=== PATIENT | female | born 1990 | race American Indian/Alaskan Native ===

== ENCOUNTER 2017-02-06 13:29 | Emergency (ER) | payer BC ==
[2017-02-06 13:55] VITALS: BP 130/74
--- NOTE | 2017-02-06 15:03 | Emergency Department Report ---
ED Female HPI - General Chief complaint: Abdominal Pain Stated complaint: DYSMENORRHEA Time Seen by Provider: 02/06/17 14:58 Source: patient Mode of arrival: Ambulatory Limitations: No Limitations - History of Present Illness Initial comments: 36-year-old female past medical history presents with complaint of dysmenorrhea times one year. Symptoms are progressively worsening. Positive suprapubic pelvic cramps rated 9/10 in intensity, intermittent, no aggravating or alleviating factors. Patient taking [id number] medication without improvement. Patient used to approximate one pad per day with clots, cycles last 5 days, menstrual cycles occur regularly and monthly. Patient being followed by Dr. Nicole - Related Data Home Medications Medication Instructions Recorded Confirmed Last Taken Noreth-Ethinyl Estradiol/Iron 1 each PO DAILY 06/26/15 06/26/15 Unknown [[place] Fe Tablet Chewable] Previous Rx's Medication Instructions Recorded Last Taken Type LORazepam [Ativan] 1 mg PO TID PRN #10 tablet 06/26/15 Unknown Rx Meclizine [Antivert] 25 mg PO TID PRN #20 tablet 06/26/15 Unknown Rx Ibuprofen [Motrin] 800 mg PO Q8HR PRN #30 tablet 02/06/17 Unknown Rx traMADol [Ultram 50 MG tab] 50 mg PO Q6HR PRN #20 tablet 02/06/17 Unknown Rx Allergies Allergy/AdvReac Type Severity Reaction Status Date / Time No Known Allergies Allergy Unverified 01/23/14 10:09 ED Review of Systems ROS: Stated complaint: DYSMENORRHEA Other details as noted in HPI Comment: All other systems reviewed and negative Other: Constitutional: No fevers chills Eyes: No eye pain visual changes ENT: No ear pain or throat pain Neck: Denies pain Respiratory: Denies cough wheezing shortness of breath Cardiovascular: Denies chest pain, palpitations, syncope GI: As per HPI : Denies dysuria Musculoskeletal: Denies back pain Skin: Denies rash, lesions, erythema Neurologic: Denies headache, numbness, weakness Psychiatric: Denies suicidal ideation, hallucinations ED Past Medical Hx - Past Medical History Previous Medical History?: No - Surgical History Past Surgical History?: No - Social History Smoking Status: Never Smoker Substance Use Type: Alcohol - Medications Home Medications: Home Medications Medication Instructions Recorded Confirmed Last Taken Type LORazepam [Ativan] 1 mg PO TID PRN #10 tablet 06/26/15 Unknown Rx Meclizine [Antivert] 25 mg PO TID PRN #20 tablet 06/26/15 Unknown Rx Noreth-Ethinyl Estradiol/Iron 1 each PO DAILY 06/26/15 06/26/15 Unknown History [[place] Fe Tablet Chewable] Ibuprofen [Motrin] 800 mg PO Q8HR PRN #30 tablet 02/06/17 Unknown Rx traMADol [Ultram 50 MG tab] 50 mg PO Q6HR PRN #20 tablet 02/06/17 Unknown Rx ED Physical Exam - General Limitations: No Limitations - Other Other exam information: General: No limitations, patient is alert in no acute distress Head exam: Atraumatic, normocephalic Eyes exam: Normal appearance ENT: Moist mucous membrane, normal oropharynx Neck exam: Normal inspection, full range of motion Respiratory exam: Clear to auscultation bilateral, no wheezes, rales, crackles Cardiovascular: Normal rate and rhythm, normal heart sounds Abdomen: Soft, nondistended, and nontender, with normal bowel sounds, no rebound, or guarding Extremity: Full range of motion normal inspection no deformity Back: Normal Inspection, full range of motion, no tenderness Neurologic: Alert, oriented x3, cranial nerves intact, no motor or sensory deficit Psychiatric: normal affect, normal mood Skin: Warm, dry, intact ED Course Vital Signs 02/06/17 13:52 Temperature 98.6 F Pulse Rate 82 Respiratory 16 Rate Blood Pressure 130/74 O2 Sat by Pulse 100 Oximetry ED Medical Decision Making - Radiology Data Radiology results: report reviewed (US transvaginal/pelvic ultrasound: No acute findings. Multiple ovarian follicles bilaterally. Trace amount of free fluid in the pelvis) - Medical Decision Making Plan to discharge patient home. She has a follow-up visit scheduled with [facility] doctor for this ongoing complaint. Ultrasound does not reveal any acute abnormality. Pain medication will be prescribed. - Differential Diagnosis uterine fibroids, endometriosis, dysmenorrhea Critical Care Time: No Critical care attestation.: If time is entered above; I have spent that time in minutes in the direct care of this critically ill patient, excluding procedure time. ED Disposition Clinical Impression: Dysmenorrhea Disposition: DISCHARGED TO HOME OR SELFCARE Is pt being admited?: No Does the pt Need Aspirin: No Condition: Stable Instructions: Dysmenorrhea (ED) Additional Instructions: Take the medication as prescribed. Return if symptoms worsen. Follow-up with your [facility] doctor for further workup and evaluation. Prescriptions: Ibuprofen [Motrin] 800 mg PO Q8HR PRN #30 tablet PRN Reason: Pain traMADol [Ultram 50 MG tab] 50 mg PO Q6HR PRN #20 tablet PRN Reason: Pain Referrals: NADEGE NICOLE MD [Staff Physician] - 3-5 Days Time of Disposition: 15:11
--- NOTE | 2017-02-06 15:54 | Ultrasound Report ---
FINAL REPORT EXAM: US PELVIC COMPLETE HISTORY: DYSMENORRHEA TECHNIQUE: Realtime transabdominal and transvaginal pelvic ultrasound. Color Doppler imaging and spectral waveform analysis. PRIORS: None. FINDINGS: Uterus measures 7.5 x 3.0 x 4.8 cm. Endometrium is 3.8 mm and appears normal. Tiny amount of free fluid in the cul-de-sac. Right ovary measures 3.9 x 2.2 x 2.9 cm. Left ovary measures 3.5 x 2.5 x 2.5 cm. Multiple ovarian follicles bilaterally. Normal color Doppler and duplex waveforms bilaterally. IMPRESSION: 1. Multiple ovarian follicles bilaterally. Tiny amount of free fluid in the pelvis.
--- NOTE | 2017-02-06 15:55 | Ultrasound Report ---
FINAL REPORT EXAM: US TRANSVAGINAL HISTORY: DYSMENORRHEA TECHNIQUE: Realtime transabdominal and transvaginal pelvic ultrasound. Color Doppler imaging and spectral waveform analysis. PRIORS: None. FINDINGS: Uterus measures 7.5 x 3.0 x 4.8 cm. Endometrium is 3.8 mm and appears normal. Tiny amount of free fluid in the cul-de-sac. Right ovary measures 3.9 x 2.2 x 2.9 cm. Left ovary measures 3.5 x 2.5 x 2.5 cm. Multiple ovarian follicles bilaterally. Normal color Doppler and duplex waveforms bilaterally. IMPRESSION: 1. Multiple ovarian follicles bilaterally. Tiny amount of free fluid in the pelvis.
== END 2017-02-06 15:20 | disposition home or self-care (01) ==
LOC: ED 13:29
DX: N94.6 Dysmenorrhea, unspecified (principal)
CPT/HCPCS: 76830; 76856; 81025